=== PATIENT | male | born 1995 | race Caucasian/White ===

== ENCOUNTER → 2017-12-07 | Outpatient (CLI) | payer OTHER ==
--- NOTE | 2017-12-07 10:57 | PCVCIMAG ---
EXAM: BILATERAL RENAL ULTRASOUND AND BILATERAL RENAL DUPLEX INDICATION: Hypertension FINDINGS: Right kidney: Length measures 11.0 cm. No hydronephrosis or extensive renal scarring. Right renal duplex: Adequate technical quality. No sonographic evidence of renal artery stenosis. The aortic to renal artery ratio is 1.0. The renal vein is patent. Left kidney: Length measures 10.7 cm. No hydronephrosis or extensive renal scarring. Left renal duplex: Adequate technical quality. No sonographic evidence of renal artery stenosis. The aortic to renal artery ratio is 1.4. The renal vein is patent. Bladder: No obvious abnormalities. IMPRESSION: No significant renal artery stenosis. No hydronephrosis bilaterally. LOC:[id number]
--- NOTE | 2017-12-07 12:47 | PCVCIMAG ---
APPROVED REPORT Study performed: 12/07/2017 09:08:54 EXAM: Comprehensive 2D, Doppler, and color-flow Echocardiogram Patient Location: Echo lab Status: routine BSA: 2.35 HR: 46 bpmBP: 128/72 mmHg Rhythm: Bradycardia Other Information Study Quality: Adequate Risk Factors: Cardiac Risk Factors: HTN Indications Bradycardia Dyspnea Fam Hx HOCM 2D Dimensions LVEF(%): 52.23 (>50%) IVSd: 9.79 (7-11mm) LVDd: 60.26 mm PWd: 10.30 (7-11mm) LVDs: 43.82 (25-40mm) Left Atrium: 41.59 (27-40mm) Aortic Root: 29.08 mm LV Single Plane 4CH: 55.94 % LV Single Plane 2CH: 60.97 %De Oliveira's LVEF: 58.46 % Biplane EF: 58.2 % Volumes Left Atrial Volume (Systole) Single Plane 4CH: 71.15 mLSingle Plane 2CH: 85.34 mL LA ESV Index: 36.00 mL/m2 Aortic Valve AoV Peak Evaristo.: 1.19 m/s AO Peak Gr.: 5.71 mmHgLVOT Max P.09 mmHg LVOT Max V: 1.01 m/s AI Vmax: 4.24 m/s AI Hettinger: 1.77 m/s2 AI PHT: 696.06 ms Mitral Valve E/A Ratio: 2.8 MV Decel. Time: 205.31 ms MV E Max Evaristo.: 0.67 m/s MV A Evaristo.: 0.24 m/s IVRT: 72.66 ms Pulmonary Valve PV Peak Evaristo.: 0.79 m/sPV Peak Gr.: 2.50 mmHg Pulmonary Vein P Vein S: 0.32 m/sP Vein A: 0.25 m/s P Vein D: 0.79 m/sP Vein A Dur.: 134.9 msec P Vein S/D Ratio: 0.41 Tricuspid Valve TR Peak Evaristo.: 2.38 m/s TR Peak Gr.: 22.57 mmHg Left Ventricle The left ventricle is borderline dilated in size. There is normal LV segmental wall motion. There is normal left ventricular wall thickness. Left ventricular systolic function is normal. The left ventricular ejection fraction is within the normal range. LVEF is 60%. The left ventricular diastolic function is normal. Right Ventricle The right ventricle is normal size. The right ventricular systolic function is normal. Atria The left atrium size is normal. The right atrium size is normal. Aortic Valve The aortic valve is normal in structure. Mild, central aortic regurgitation is present. There is no aortic valvular stenosis. Mitral Valve The mitral valve is normal in structure. Mild mitral regurgitation. No evidence of mitral valve stenosis. Tricuspid Valve The tricuspid valve is normal in structure. Mild tricuspid regurgitation with PAP of 30 mmHg. Pulmonic Valve The pulmonary valve is normal in structure. There is mild pulmonic valvular regurgitation. Great Vessels The aortic root is normal in size. IVC is normal in size and collapses with >50% inspiration Pericardium There is no pericardial effusion. There is no pleural effusion. <Conclusion> Left ventricular systolic function is normal. There is normal LV segmental wall motion. LVEF 60%. Normal diastolic function. Normal wall thickness. The aortic valve is normal in structure. Mild, central aortic regurgitation is present. The mitral valve is normal in structure. Mild mitral regurgitation Mild tricuspid regurgitation with pulmonary artery pressure of 30 mmHg. There is no pericardial effusion.
--- NOTE | 2017-12-07 12:52 | PCVCIMAG ---
APPROVED REPORT Patient Location: Echo lab Room #: Stress Nurse: Ssoa East RN Treadmill Stress Test Indications- dyspnea, chest pain, HTN The patient exercised according to the ESHA protocol for 12 mins; achieving a work level of 13.4 METS. The resting heart rate of 45 bpm salma to a maximum heart rate of 157 bpm. This value represent 78% of the maximal, age-predicted heart rate. The resting blood pressure of 128/72 mmHg, salma to a maximum blood pressure of 182/70 mmHg. The exercise test was stopped due to dyspnea and fatigue. Resting EKG: Sinus bradycardia with early repolarization Stress EKG: No significant dysrhythmias. No ST segment shifts diagnostic of myocardial ischemia Conclusion 1. Submaximal treadmill exercise study of low probability for provokable ischemia. 2. Normal hemodynamic response to exercise. No dysrhythmias. No ischemic or echocardiographic changes. 3. The study was associated with good exercise capacity (13.4 METS)
== END | disposition home or self-care (01) ==
LOC: PCVCIMAG 09:53
PROVIDERS: ATTEND Internal Medicine
DX: I08.3 Combined rheumatic disorders of mitral, aortic and tricuspid valves (principal); I10 Essential (primary) hypertension; G47.33 Obstructive sleep apnea (adult) (pediatric); R06.09 Other forms of dyspnea; R00.1 Bradycardia, unspecified; Z82.49 Family history of ischemic heart disease and other diseases of the circulatory system
CPT/HCPCS: 76770; 93017; 93306; 93975